=== PATIENT | female | born 1955 | race Caucasian/White ===

== ENCOUNTER 2019-05-18 13:23 | Outpatient (CLI) | payer MEDICARE, MEDICAID, SELFPAY ==
[2019-05-18 13:48] LABS: Basophils # 0.1 10^3/uL (0.0-0.1); Basophils % 1.1 %; Eosinophils # 0.1 10^3/uL (0.0-0.8); Hematocrit 40.7 % (37.0-47.0); Hemoglobin 13.5 g/dL (11.5-15.3); Lymphocytes # 1.2 10^3/uL (0.8-4.8); Lymphocytes % 26.4 %; Mean Corpuscular HGB Conc 33.2 g/dL (30.0-36.0); Mean Corpuscular Hemoglobin 29.2 pg (28.0-34.0); Mean Corpuscular Volume 88.1 fL (81-99); Mean Platelet Volume 9.9 fL (7.4-10.4); Monocytes # 0.4 10^3/uL (0.2-0.9); Monocytes % 7.4 %; Neutrophils # 2.9 10^3/uL (1.8-7.7); Neutrophils % 61.9 %; Nucleated Red Blood Cells % 0 %; Platelet Count 269 10^3/cmm (130-400); Red Blood Count 4.62 10^6/uL (4.1-5.3); Red Cell Distribution Width 13.6 % (12.1-15.1); White Blood Count 4.7 10^3/uL (4.0-10.0)
[2019-05-18 14:08] LABS: Alanine Aminotransferase < 5 U/L (0-33); Albumin Level 3.9 g/dL (3.5-5.2); Alkaline Phosphatase 77 IU/L (35-105); Anion Gap 15.8 (5-19); Aspartate Amino Transferase 17 U/L (0-32); Blood Urea Nitrogen 11 mg/dL (8-23); Carbon Dioxide 25 mmol/L (22-29); Chloride 100 mmol/L (98-107); Globulin 3.8 g/dL (1.3-4.6); Glomerular Filtration Rate 62.6 mL/min (90-130); Glucose 100 mg/dL (65-115); Potassium 3.8 mmol/L (3.5-5.1); Sodium 137 mmol/L (136-145); Total Bilirubin 0.4 mg/dL (0.15-1.2); Total Protein 7.7 g/dL (6.6-8.7)
--- NOTE | 2019-05-20 08:25 | ONC FU_ITS ---
Dr. Correia Patient Follow-Up Note Patient: Zenaida Hale Unit #: [id number]: [id number] Dicatated By: Adrian Correia M.D.Date of Visit:May 18, 2019 Onc Med Follow-up/Prog Note Chief Complaint: Breast cancer. History of Present Illness: This is a 64 year-old woman with grade 1 infiltrating ductal carcinoma of the left breast, stage IIB (T2, pN1, M0), ER/TX positive and HER-2/thad negative. She had initially presented with a palpable lump in her left breast. A subsequent mammogram showed a spiculated mass in the 9:00 position of the left breast, confirmed on ultrasound to be a solid nodule measuring 19 x 11 mm. Biopsy showed grade 1 invasive ductal carcinoma which was ER positive at 98% and TX positive at 99%. It was negative for overexpression of HER-2/thad (0 by IHC). On 10/25/2008 she underwent excisional biopsy and sentinel axillary lymph node sampling. Pathology showed well-differentiated ductal carcinoma measuring 2.1 cm in greatest diameter. There was involvement in 1 sentinel axillary lymph node which measured 1.9 mm. On 11/08/2008 she underwent left axillary lymph node dissection which showed no involvement in an additional 13 lymph nodes. She was given adjuvant chemotherapy with 4 cycles of Taxotere/cyclophosphamide, which she completed in February 2009. She was then given radiation to the left breast, which she completed in May 2009 to a total dose of 6040 cGy. She then started adjuvant hormonal therapy with Femara. She also received IV Zometa infusions at 6 month intervals, as she had evidence of osteoporosis on her baseline bone density study. She had stopped Femara in June 2013, apparently because her prescription had run out. She restarted it in December 2013 and continued until December 2014, at which time she had completed 5 years of treatment. She has since then been followed on observation/expectant management. Her other medical illnesses include hyperlipidemia and long-standing multiple sclerosis. She had been treated with Copaxone in the past. She has otherwise just been managed symptomatically. Her only other surgery was a previous hysterectomy without oophorectomy. She does not smoke. She had some tobacco exposure in the remote past. She is seen for a followup visit. She has not been feeling good, mainly due to pain in her left shoulder/arm and her left side. She says she is not able to sit or lie with her arm resting flat. It has to be elevated with a pillow or something of that sort. She is also been having some pain in her back on the right side. She has been having a lot of muscle cramps in her legs and feet, especially at night. She says her energy is not bad, she has limited activity due to the pain. ECOG score is 1. She has good appetite. She has not had fever. She is having some hot flashes at night. She has shortness of breath with activity. She sometimes has cough. She does not complain of chest pain. She has no GI complaints other than she sometimes gets the runs. She has some hesitancy with urination. She does not complain of headache or dizziness. She has numbness/tingling in her feet. Medications: Gabapentin 1 (100 mg) Capsule Oral b.i.d., Hydrocodone-Acetaminophen 1 (10-325 mg) Tablet Oral q 4 to 6 hours PRN, Vitamin D 1 Tablet (of 2000 Units) Oral daily Allergies: No Known Allergies. Review of Systems: Constitutional - Her energy is pretty good, but she tires easily. She does some light chores at home. Her appetite is good and her weight is up about 7 pounds since her last visit. No fever or chills. She has hot flashes and sweating at night. ECOG score is 1, ENMT - No sinus congestion/drainage. No mouth sores. No sore throat. She sometimes chokes on food and has difficulty swallowing, Hematologic/Lymphatic - No abnormal bruising or bleeding, Respiratory - She has shortness of breath with activity. She has an occasional cough. No pleuritic pain or hemoptysis, Cardiovascular - No angina pain. No palpitations, Gastrointestinal - No nausea or vomiting. No heartburn or acid reflux. She sometimes has to take Imodium when she gets diarrhea. No blood in the stool or black stools, Genitourinary (F) - No dysuria or hematuria. No urinary frequency. No urgency or incontinence, Musculoskeletal - She has pain in her left arm, rib area and back. The pain sometimes radiates over to the right side, in her rib area. She gets cramping in her calves and feet at night, Integumentary - No skin complications, Neurologic - No headache or dizziness. She has numbness and tingling in her feet, Psychiatric - No anxiety or depression. No insomnia. Vital Signs: Performed on May 18, 2019 14:53 Height - 63.00 in Weight - 146.8 lbs (HIGH) BSA - 1.70 sq.m BMI - 26.00 Temperature - 97.5 F (LOW) Pulse - 81 /min Respiration - 18 /min BP - 106/68 mm(hg) O2 Sat - 98 % Pain - 3 Physical Examination: Constitutional - She appears somewhat weak generally, Eyes - Sclerae nonicteric. Conjunctivae clear, ENMT - No lesions noted in the oral cavity, Hematologic/Lymphatic - No cervical or clavicular adenopathy, Respiratory - Lungs are clear with good air movement bilaterally, Cardiovascular - Heart rhythm is regular. There is no murmur, gallop, or rub noted, Breasts - The right breast shows no mass. There is tenderness in the left chest wall. There are no chest wall lesions noted. There is no axillary adenopathy noted, Abdomen - Soft. Liver and spleen are not enlarged. There is no abdominal mass or ascites noted and there is no inguinal adenopathy, Extremities - No edema. There is limited range of motion of the left shoulder joint, Neurologic - There is some proximal muslce weakness of the left leg. There are no other focal deficits noted. Lab/Imaging: Test performed on May 18, 2019 13:30 Sodium 137 mmol/L Potassium 3.8 mmol/L Chloride 100 mmol/L CO2 25 mmol/L Anion Gap 15.8 BUN 11 mg/dL Creatinine 0.9 mg/dL Cr Clearance (Est) 64.64 mL/min eGFR 62.6 mL/min Glucose 100 mg/dL Calcium 10.0 mg/dL Protein, Total 7.7 g/dL Albumin 3.9 g/dL Globulin 3.8 g/dL Bilirubin, Total 0.4 mg/dL ALT (SGPT) < 5 U/L AST (SGOT) 17 U/L Alkaline Phosphatase 77 IU/L WBC 4.7 10 3/uL RBC 4.62 10 6/uL HGB 13.5 g/dL HCT 40.7 % MCV 88.1 fL MCH 29.2 pg MCHC 33.2 g/dL RDW 13.6 % Platelet Count 269 10 3/cmm MPV 9.9 fL Neutrophils 2.9 10 3/uL Lymphocytes 1.2 10 3/uL Monocytes 0.4 10 3/uL Eosinophils 0.1 10 3/uL Basophils 0.1 10 3/uL Neutrophil % 61.9 % Lymphocyte % 26.4 % Monocyte % 7.4 % Eosinophil % 3.0 % Basophils % 1.1 % Impression: 1. Patient with grade 1 infiltrating ductal carcinoma of the left breast, stage IIB, ER/TX positive and HER-2/thad negative. 2. Her treatment included lumpectomy/axillary lymph node dissection followed by adjuvant chemotherapy with 4 cycles of cyclophosphamide/Taxotere, completed in February 2009. 3. She completed radiation to the left breast in May 2009. 4. She was then given adjuvant hormonal therapy with Femara, which she tolerated well. She had a 6-month interruption during 2013 when her prescription ran out, but as of December 2014 she did complete 5 years of treatment. 5. She had evidence of osteoporosis on her baseline bone density study, and she also was given Zometa infusions every 6 months. A repeat bone density study in December 2013 did show improved bone mineral density with T score -1.7 in the lumbar spine, -1.8 in the left hip, and -1.5 in the right hip. Her other medical illnesses include: 6. Hyperlipidemia. 7. Multiple sclerosis. During follow-up she has continued to have some pain intermittently in the area of the left chest wall, axilla, and left arm. The pain is significant enough to limit her activity, and lately it does seem to be getting somewhat worse. She otherwise appears stable clinically. Plan: She remains on observation for the breast cancer. She will be scheduled for a bone scan and for a repeat DEXA scan. She will have further evaluation as indicated. In the meantime, I will continue to refill her hydrocodone/APAP, as she does function significantly better with the pain medication. Signed By: Adrian Correia M.D. <<Signature on File>>
== END 2019-05-18 13:24 | disposition home or self-care (01) ==
LOC: ONCMED 13:24
PROVIDERS: Family Provider Pediatrics; PCP Pediatrics; Visit Provider Internal Medicine Medical Oncology
DX: Z08 Encounter for follow-up examination after completed treatment for malignant neoplasm (principal); G35 Multiple sclerosis; M81.0 Age-related osteoporosis without current pathological fracture; E78.5 Hyperlipidemia, unspecified; Z79.891 Long term (current) use of opiate analgesic; Z85.3 Personal history of malignant neoplasm of breast; Z92.21 Personal history of antineoplastic chemotherapy; Z92.23 Personal history of estrogen therapy
CPT/HCPCS: 36415; 80053; 85025; 99214

== ENCOUNTER 2019-06-01 09:30 | Outpatient (CLI) | payer MEDICARE, SELFPAY ==
--- NOTE | 2019-06-01 09:38 | NM_ITS ---
WS: [id number] NUCLEAR MEDICINE BONE SCAN Radiopharmaceutical: 24.5 Tc-99m MDP mCi I Postinjection imaging delay: 2 hr Right antecubital injection CLINICAL INFORMATION: BREAST CANCER/L ARM PAIN/L CHEST WALL BACK COMPARISON: None. FINDINGS: Bone lesions: There are no osseous lesions suspicious for metastatic disease. Focal uptake in the rig ht sternoclavicular joint likely degenerative or inflammatory. Degenerative type uptake involving bot h AC joints. Soft tissue contours: Normal. Kidneys: Normal. Other findings: None. NM/NM bone scan whole body* [id number] IMPRESSION: 1. No evidence of osseous metastatic disease. 2. Focal uptake in the right sternoclavicular joint likely degenerative or inf lammatory 3. Degenerative uptake involving both AC joints.
== END 2019-06-01 09:31 | disposition home or self-care (01) ==
PROVIDERS: Family Provider Pediatrics; PCP Pediatrics; Visit Provider Internal Medicine Medical Oncology
DX: M81.0 Age-related osteoporosis without current pathological fracture (principal); M79.602 Pain in left arm; R07.89 Other chest pain; M54.9 Dorsalgia, unspecified; C50.812 Malignant neoplasm of overlapping sites of left female breast
CPT/HCPCS: 77080; 78306; A9561

== ENCOUNTER 2019-06-01 12:47 | Outpatient (CLI) | payer MEDICARE, MEDICAID, SELFPAY ==
--- NOTE | 2019-06-01 12:54 | XR_ITS ---
WS: [id number] DEXA (DUAL ENERGY X-RAY ABSORPTIOMETRY) Bone mineral density was performed using a travayl machine. HISTORY: OSTEOPOROSIS COMPARISON: 04/15/2017 Lumbar spine BMD (L1-L4): 0.970 g/cm2 T score: -1.7 Z score: -0.1 Total hip BMD: Left: 0.748 g/cm2. T score: -2.1 Z score: -0.8 Right: 0.803 g/cm2. T score: -1.6 Z score: -0.3 Compared to the prior study from 04/15/2017. Lumbar spine bone mineral density has decreased by 1.6%. Bilateral hips bone mineral density has increased by 0.5%. XR/XR DEXA axial skeleton* [id number] IMPRESSION: OSTEOPENIA based upon the WHO classification for females. No significant change in bone mineral density since the most recent exam.
== END 2019-06-01 12:48 | disposition home or self-care (01) ==
LOC: RADWPI 12:50
PROVIDERS: Family Provider Pediatrics; PCP Pediatrics; Visit Provider Internal Medicine Medical Oncology
DX: M81.0 Age-related osteoporosis without current pathological fracture (principal)
CPT/HCPCS: 77080